=== PATIENT | male | born 1980 | race Caucasian/White ===

== ENCOUNTER → 2018-01-03 | Outpatient (CLI) | payer BC ==
[2018-01-03 11:02] LABS: CHOLESTEROL 233.57 mg/dL (0-200); GLUCOSE,FASTING 86 mg/dL (<110); TRIGLYCERIDES 239 mg/dL (<150)
[2018-01-03 11:13] LABS: DIRECT LDL 159 mg/dL (<100)
[2018-01-03 11:16] LABS: VLDL CHOLESTEROL 47.8 mg/dL (10-31)
== END ==
LOC: OD 09:43
PROVIDERS: ATTEND Psychiatry & Neurology Psychiatry
DX: F33.2 Major depressive disorder, recurrent severe without psychotic features (principal)
CPT/HCPCS: 36415; 80061; 82947; 83036